=== PATIENT | female | born 1990 | race Caucasian/White ===

== ENCOUNTER 2022-12-05 11:07 | Emergency (ER) | payer BC ==
[~2022-12-05] VITALS: Ht 167.6 cm; Wt 105.7 kg
[2022-12-05] MEDS ORDERED: KETOROLAC TROMETHAMINE 30 MG/ML VIAL IV ONE (11:40)
[2022-12-05] MEDS ORDERED: KETOROLAC TROMETHAMINE 30 MG/ML VIAL ONE (11:56)
[2022-12-05] MEDS ORDERED: IOPAMIDOL 370 MG/ML 100 ML INFUS..BTL INJ ONE (13:24)
[2022-12-05 14:08] VITALS: BP 110/76
== END 2022-12-05 14:10 | disposition home or self-care (01) ==
LOC: FSED 11:39
DX: R20.2 Paresthesia of skin (principal); R07.9 Chest pain, unspecified; F41.9 Anxiety disorder, unspecified; R94.31 Abnormal electrocardiogram [ECG] [EKG]
CPT/HCPCS: 71046; 71260; 93005; 99284; J1885; Q9967